=== PATIENT | female | born 1950 ===

== ENCOUNTER 2021-12-24 13:00 | Inpatient (IN) | payer OTHER ==
[2021-12-24] MEDS ORDERED: LEVOTHYROXINE25 MCG PO (17:13)
[2021-12-24] MEDS ORDERED: AVAPRO300 MG PO (17:14)
[2021-12-24] MEDS ORDERED: CARVEDILOL25 M1 PO (17:14)
[2021-12-24] MEDS ORDERED: HYDRALAZINE HC100 MG PO (17:15)
[2021-12-24] MEDS ORDERED: JARDIANCE10 MG PO (17:15)
[2021-12-24] MEDS ORDERED: GLUMETZA500 MG PO (17:16)
[2021-12-24] MEDS ORDERED: LIPITOR40 M1 PO (17:16)
[2021-12-24] MEDS ORDERED: VITAMIN D PO (17:16)
[2021-12-25] MEDS ORDERED: VITAMIN D310 MC4 (13:22)
== END 2021-12-27 20:50 | disposition home or self-care (01) | DRG 743 ==
LOC: OB/GYN 12-25 11:54 → O/R 12-25 11:54 → SURH 12-25 13:00 → OB/GYN 12-25 22:57
PROVIDERS: ADMIT Specialist; ATTEND Specialist
PROC: 0UT78ZZ Resection of Bilateral Fallopian Tubes, Via Natural or Artificial Opening Endoscopic (ICD-10-PCS; 2021-12-25)
PROC: 0UT28ZZ Resection of Bilateral Ovaries, Via Natural or Artificial Opening Endoscopic (ICD-10-PCS; 2021-12-25)
PROC: 0UT98ZZ Resection of Uterus, Via Natural or Artificial Opening Endoscopic (ICD-10-PCS; principal; 2021-12-25 18:00)
DX: N85.02 Endometrial intraepithelial neoplasia [EIN] (principal); D25.1 Intramural leiomyoma of uterus; Z20.822 Contact with and (suspected) exposure to COVID-19